=== PATIENT | female | born 1990 | race Caucasian/White ===

== ENCOUNTER 2018-04-25 17:32 | Emergency (ER) | payer OTHER ==
[2018-04-25] MEDS ORDERED: NS 1,000 ML IV ONE (19:17)
[2018-04-25 19:36] LABS: PLATELET COUNT 257 10^3/uL (150-400)
--- NOTE | 2018-04-25 21:22 | EDPHY ---
H & P Stated Complaint: gen abd pain x 10 days - Personal History LMP (Females 10-55): 1-7 Days Ago - Medical/Surgical History Hx Asthma: No Hx Chronic Respiratory Disease: No Hx Diabetes: No Hx Cardiac Disease: No Hx Renal Disease: No Hx Cirrhosis: No Hx Alcoholism: No Hx HIV/AIDS: No Hx Splenectomy or Spleen Trauma: No Other PMH: appy 2009 - Social History Smoking Status: Never smoked Time Seen by Provider: 04/25/18 18:55 HPI/ROS: Chief complaint: Abdominal pain and bloating History of present illness: This is a 28-year-old female who presents to the emergency department for evaluation of abdominal pain and bloating. Patient reports the onset of symptoms approximately 10 days ago. Symptoms wax and wane in intensity. She denies any precipitating factors. She denies any alleviating factors. She denies any other associated signs or symptoms including no fevers, no nausea, vomiting or diarrhea, no urinary symptoms, no vaginal discharge or discomfort. She just finished her last menstrual cycle which was normal. She is in a monogamous relationship and denies STI risk factors. She has had an appendectomy. Review of systems: A 10 point review of systems was obtained and other than described above was negative (Parish Silva) - Physical Exam Exam: General Appearance: Alert, nontoxic. Eyes: Pupils equal and round no pallor or injection. ENT, Mouth: Mucous membranes moist. Respiratory: There are no retractions, lungs are clear to auscultation. Cardiovascular: Regular rate and rhythm. Gastrointestinal: Bowel sounds are normal. The abdomen is soft and nondistended. There is mild discomfort to palpation in the lower middle abdomen. The rest of the abdomen is nontender. Neurological: Alert and oriented x4. Strength and sensation intact and symmetrical. Skin: Warm and dry, no rashes. Musculoskeletal: Neck is supple non tender. Extremities are symmetrical, full range of motion. Psychiatric: Patient is oriented X 3, there is no agitation. (Parish Silva) Constitutional: Initial Vital Signs Temperature (C) 36.4 C 04/25/18 17:47 Heart Rate 75 04/25/18 17:47 Respiratory Rate 16 04/25/18 17:47 Blood Pressure 100/63 04/25/18 17:47 O2 Sat (%) 97 04/25/18 17:47 O2 Delivery Mode Room Air Allergies/Adverse Reactions: No Known Allergies Allergy (Unverified 04/25/18 17:45) Home Medications: Medication Instructions Recorded NK [No Known Home Meds] 04/25/18 Medical Decision Making - Diagnostics Imaging: Discussed imaging studies w/ at home independent call center agent Radiologist ED Course/Re-evaluation: Patient seen under the supervision of my secondary supervising physician Dr. Cameron Gaffney. Patient presents for abdominal discomfort. She is nontoxic. Afebrile and vital signs are stable. Mild discomfort on palpation of the abdomen with out peritoneal signs. Blood studies largely unremarkable. Urinalysis showed bacteria without other findings, no reported urinary symptoms , I doubt UTI and therefore will send urine for culture not began treatment. Pelvic ultrasound is obtained and unremarkable. We discussed further investigation with a CT scan of the abdomen and pelvis, she declined. We discussed pursuing a pelvic exam, she again declined. Given she is nontoxic, has a rather benign abdominal exam and rather unremarkable workup she will be discharged home. She is asked to follow up with a primary care doctor for recheck. Home care is discussed. Strict return precautions were discussed. Patient voiced understanding and agreement with plan. (Parish Silva) I did not see this patient while she was in the emergency department. However her care was discussed with the PA while the patient was in the department. I agree with treatment plan and management (Cameron Gaffney S) Differential Diagnosis: Included but not limited to colitis, diverticulitis, uterine mass, pelvic inflammatory disease, urinary tract disease, and associated complications (Parish Silva) - Data Points Laboratory Results: Laboratory Results 04/25/18 19:28 04/25/18 19:28 Microbiology Results: MICROBIOLOGY 04/25/18 19:28 Unspecified Urine Culture - Preliminary Two [place] Types Medications Given: Discontinued Medications Sodium Chloride (Ns) 1,000 mls @ 0 mls/hr IV EDNOW ONE; Wide Open PRN Reason: Protocol Stop: 04/25/18 19:18 Last Admin: 04/25/18 19:36 Dose: 1,000 mls Departure - Departure Disposition: Home, Routine, Self-Care Clinical Impression: Abdominal pain Qualifiers: Abdominal location: lower abdomen, unspecified Qualified Code(s): R10.30 - Lower abdominal pain, unspecified Condition: Good Instructions: Acute Abdominal Pain (ED) Additional Instructions: Please follow-up with the primary care doctor on [place] for recheck without fail Drink plenty of fluids to stay hydrated You may try a fiber supplement such as Metamucil or Citrucel You can also try an anti bloating medications such as simethicone If symptoms worsen or new symptoms develop return to the emergency department for recheck Referrals: NONE *PRIMARY CARE P,. [Primary Care Provider] - As per Instructions [facility] [place],. [Clinic] - As per Instructions Anu Hicks MD [[facility] [place] Primary Care Provider] - As per Instructions
[2018-04-25 21:46] VITALS: BP 101/60
== END 2018-04-25 21:45 | disposition home or self-care (01) ==
DX: R10.30 Lower abdominal pain, unspecified (principal); R14.0 Abdominal distension (gaseous); E86.9 Volume depletion, unspecified